=== PATIENT | female | born 1950 | race African-American/Black ===

== ENCOUNTER 2017-05-05 21:33 | Emergency (ER) | payer SELFPAY ==
[2017-05-05 22:22] LABS: APPEARANCE CLEAR (CLEAR); COLOR YELLOW (YELLOW)
[2017-05-05 22:23] LABS: BILIRUBIN NEGATIVE (NEGATIVE); GLUCOSE NEGATIVE (NEGATIVE); KETONE NEGATIVE (NEGATIVE); NITRITE NEGATIVE (NEGATIVE); PROTEIN TRACE mg/dL (NEGATIVE); SPECIFIC GRAVITY 1.015 (1.005-1.020); UROBILINOGEN NORMAL (NORMAL)
[2017-05-05 22:50] LABS: BASOPHILS 0.1 % (0-2); EOSINOPHILS 0.3 % (0-7); HEMATOCRIT 32.4 % (36.0-48.0); HEMOGLOBIN 10.5 g/dL (12-16); IMMATURE GRANULOCYTES 0.1 % (0-5); LYMPHOCYTES 12.6 % (15-50); MCH 26.9 pg (26.0-34.0); MCHC 32.4 g/dL (31.0-37.0); MCV 83.1 fL (80.0-100.0); MEAN PLATELET VOLUME 9.6 fL (7.4-10.4); MONOCYTES 4.2 % (2-11); NEUTROPHILS 82.7 % (40-80); PLATELET COUNT 326 10x3/uL (130-400); RDW 14.3 % (11.5-14.5); WBC 13.4 10x3/uL (4.8-10.8)
[2017-05-05 22:57] LABS: ALBUMIN 3.9 g/dL (3.4-5.0); ANION GAP 11.4 mmol/L (8-16); BILIRUBIN - TOTAL 0.33 mg/dL (0.2-1.3); CALCIUM 9.2 mg/dL (8.5-10.1); CARBON DIOXIDE 28.8 mmol/L (21.0-32.0); CREATININE - SERUM 1.3 mg/dL (0.6-1.3); POTASSIUM - SERUM 4.2 mmol/L (3.5-5.1); PROTEIN - SERUM 8.4 g/dL (6.4-8.2)
[2017-05-07] MEDS ORDERED: GLUCOPHAGE500 MG PO (02:30)
[2017-05-07] MEDS ORDERED: OMEPRAZOLE40 MG PO (02:32)
[2017-05-07 14:52] VITALS: BMI 25.9
== END 2017-05-06 00:28 | disposition home or self-care (01) ==
LOC: D.ER 21:33 → EDSEX 21:33 → D.ER 05-06 00:28
PROVIDERS: Emergency Medicine
DX: K21.9 Gastro-esophageal reflux disease without esophagitis (principal); E11.9 Type 2 diabetes mellitus without complications

== ENCOUNTER 2017-05-06 19:15 | Inpatient (IN) | payer SELFPAY ==
[~2017-05-06] VITALS: Ht 167.6 cm; Wt 73.0 kg
[2017-05-06 19:56] LABS: BASOPHILS 0.2 % (0-2); EOSINOPHILS 0.3 % (0-7); HEMATOCRIT 33.4 % (36.0-48.0); HEMOGLOBIN 10.9 g/dL (12-16); IMMATURE GRANULOCYTES 0.2 % (0-5); LYMPHOCYTES 10.4 % (15-50); MCHC 32.6 g/dL (31.0-37.0); MCV 82.7 fL (80.0-100.0); MEAN PLATELET VOLUME 9.5 fL (7.4-10.4); MONOCYTES 4.3 % (2-11); NEUTROPHILS 84.6 % (40-80); PLATELET COUNT 315 10x3/uL (130-400); RBC 4.04 10x6/uL (4.00-5.40); RDW 14.2 % (11.5-14.5); WBC 13.7 10x3/uL (4.8-10.8)
[2017-05-06 20:31] LABS: ALBUMIN 3.9 g/dL (3.4-5.0); ANION GAP 16.2 mmol/L (8-16); BILIRUBIN - TOTAL 0.32 mg/dL (0.2-1.3); CALCIUM 9.3 mg/dL (8.5-10.1); CARBON DIOXIDE 28.4 mmol/L (21.0-32.0); CREATININE - SERUM 1.5 mg/dL (0.6-1.3); POTASSIUM - SERUM 4.6 mmol/L (3.5-5.1)
[2017-05-06 21:13] LABS: AMYLASE - SERUM 73 U/L (25-115); LIPASE 154 U/L (73-393)
[2017-05-07] MEDS ORDERED: GLUCOPHAGE500 MG PO (02:30)
[2017-05-07] MEDS ORDERED: OMEPRAZOLE40 MG PO (02:32)
[2017-05-07 02:34] VITALS: BP 115/74; BMI 26.0
[2017-05-07 04:17] VITALS: BP 115/74
[2017-05-07 06:51] LABS: HEMATOCRIT 26.4 % (42.0-54.0); HEMOGLOBIN 8.4 g/dL (13.5-17.5)
[2017-05-07 09:41] VITALS: BP 96/64
[2017-05-07 11:45] VITALS: BMI 25.9
[2017-05-07 12:14] VITALS: BP 114/63
[2017-05-07 14:50] LABS: HEMOGLOBIN 7.7 g/dL (13.5-17.5)
[2017-05-07 14:52] VITALS: Ht 167.6 cm; Wt 73.0 kg
[2017-05-07 16:49] LABS: BASOPHILS 0.2 % (0-2); EOSINOPHILS 1.5 % (0-7); HEMATOCRIT 24.1 % (42.0-54.0); HEMOGLOBIN 7.6 g/dL (13.5-17.5); IMMATURE GRANULOCYTES 0.2 % (0-5); LYMPHOCYTES 18.3 % (15-50); MCH 26.2 pg (26.0-34.0); MCHC 31.5 g/dL (31.0-37.0); MCV 83.1 fL (80.0-100.0); MEAN PLATELET VOLUME 9.7 fL (7.4-10.4); MONOCYTES 6.4 % (2-11); NEUTROPHILS 73.4 % (40-80); PLATELET COUNT 262 10x3/uL (130-400); RDW 14.3 % (11.5-14.5)
[2017-05-07 16:50] LABS: WBC 8.5 10x3/uL (4.8-10.8)
[2017-05-07 17:22] LABS: ALBUMIN 2.8 g/dL (3.4-5.0); ANION GAP 11.8 mmol/L (8-16); BILIRUBIN - TOTAL 0.14 mg/dL (0.2-1.3); CALCIUM 7.8 mg/dL (8.5-10.1); CARBON DIOXIDE 25.2 mmol/L (21.0-32.0); CREATININE - SERUM 1.3 mg/dL (0.6-1.3); PROTEIN - SERUM 5.7 g/dL (6.4-8.2)
[2017-05-07 19:57] VITALS: BP 123/61
[2017-05-07 22:50] LABS: HEMATOCRIT 22.6 % (42.0-54.0)
[2017-05-07 22:53] LABS: HEMOGLOBIN 7.3 g/dL (13.5-17.5)
[2017-05-07 23:45] VITALS: BP 107/61
[2017-05-08] VITALS (16 sets, daily range): BP systolic 95–150; BP diastolic 56–90
[2017-05-08 06:40] LABS: BASOPHILS 0.1 % (0-2); EOSINOPHILS 1.5 % (0-7); IMMATURE GRANULOCYTES 0.3 % (0-5); LYMPHOCYTES 17.7 % (15-50); MCH 27.5 pg (26.0-34.0); MCHC 32.8 g/dL (31.0-37.0); MEAN PLATELET VOLUME 9.7 fL (7.4-10.4); MONOCYTES 6.4 % (2-11); PLATELET COUNT 240 10x3/uL (130-400); RDW 14.3 % (11.5-14.5); WBC 8.8 10x3/uL (4.8-10.8)
[2017-05-08 06:41] LABS: HEMATOCRIT 29.9 % (42.0-54.0); HEMOGLOBIN 9.8 g/dL (13.5-17.5); RBC 3.56 10x6/uL (4.20-6.10)
[2017-05-08 06:58] LABS: APTT 28.7 SECONDS (22.8-39.4); INR 1.15 (0.85-1.17); PROTIME 14.3 SECONDS (11.6-15.0)
[2017-05-08 07:05] LABS: ALBUMIN 2.7 g/dL (3.4-5.0); BILIRUBIN - TOTAL 0.4 mg/dL (0.2-1.3); CARBON DIOXIDE 25.3 mmol/L (21.0-32.0); CREATININE - SERUM 1.3 mg/dL (0.6-1.3); POTASSIUM - SERUM 4.3 mmol/L (3.5-5.1)
[2017-05-09 04:52] VITALS: BP 145/74
[2017-05-09 05:20] LABS: BASOPHILS 0.2 % (0-2); EOSINOPHILS 1.7 % (0-7); HEMATOCRIT 30.9 % (42.0-54.0); HEMOGLOBIN 10.2 g/dL (13.5-17.5); IMMATURE GRANULOCYTES 0.2 % (0-5); LYMPHOCYTES 19.8 % (15-50); MCH 27.3 pg (26.0-34.0); MCV 82.8 fL (80.0-100.0); MEAN PLATELET VOLUME 9.5 fL (7.4-10.4); MONOCYTES 7.8 % (2-11); NEUTROPHILS 70.3 % (40-80); PLATELET COUNT 271 10x3/uL (130-400); RBC 3.73 10x6/uL (4.20-6.10); RDW 14.3 % (11.5-14.5); WBC 9.5 10x3/uL (4.8-10.8)
[2017-05-09 05:49] LABS: ANION GAP 13.7 mmol/L (8-16); BILIRUBIN - TOTAL 0.44 mg/dL (0.2-1.3); CALCIUM 8.4 mg/dL (8.5-10.1); CREATININE - SERUM 1.3 mg/dL (0.6-1.3); POTASSIUM - SERUM 3.7 mmol/L (3.5-5.1); PROTEIN - SERUM 6.6 g/dL (6.4-8.2)
[2017-05-09 09:22] VITALS: BP 139/85
[2017-05-09 11:44] LABS: APPEARANCE CLEAR (CLEAR); BILIRUBIN NEGATIVE (NEGATIVE); COLOR STRAW (YELLOW); GLUCOSE NEGATIVE (NEGATIVE); KETONE NEGATIVE (NEGATIVE); NITRITE NEGATIVE (NEGATIVE); PROTEIN NEGATIVE (NEGATIVE); UROBILINOGEN NORMAL (NORMAL)
[2017-05-09] MEDS ORDERED: OMEPRAZOLE40 MG PO (11:47)
[2017-05-09] MEDS ORDERED: CARAFATE1 G/10 ML PO (11:47)
== END 2017-05-09 14:04 | disposition home or self-care (01) | DRG 377 ==
LOC: D.ER 19:15 → EDSEX 19:15 → D.MS 05-07 01:58
PROVIDERS: Emergency Medicine; Family Medicine; Internal Medicine Gastroenterology; Nurse Practitioner Family
PROC: 0DB78ZX Excision of Stomach, Pylorus, Via Natural or Artificial Opening Endoscopic, Diagnostic (ICD-10-PCS; 2017-05-08)
PROC: 0DB38ZX Excision of Lower Esophagus, Via Natural or Artificial Opening Endoscopic, Diagnostic (ICD-10-PCS; principal; 2017-05-08 09:30)
DX: K25.4 Chronic or unspecified gastric ulcer with hemorrhage (principal); N17.0 Acute kidney failure with tubular necrosis; D62 Acute posthemorrhagic anemia; K22.10 Ulcer of esophagus without bleeding; F17.203 Nicotine dependence unspecified, with withdrawal; K44.9 Diaphragmatic hernia without obstruction or gangrene; T39.315A Adverse effect of propionic acid derivatives, initial encounter; K29.70 Gastritis, unspecified, without bleeding; K29.80 Duodenitis without bleeding; E86.0 Dehydration; I11.0 Hypertensive heart disease with heart failure; I50.9 Heart failure, unspecified; R63.4 Abnormal weight loss; Z68.25 Body mass index [BMI] 25.0-25.9, adult; E11.65 Type 2 diabetes mellitus with hyperglycemia